=== PATIENT | female | born 1990 | race Caucasian/White ===

== ENCOUNTER 2018-10-31 00:33 | Outpatient (CLI) | payer BC, SELFPAY ==
--- NOTE | 2018-10-31 09:54 | DI.US_ITS ---
SYMPTOMS/DIAGNOSIS: SUPERVISION OF NORMAL , Z34.91 OB ULTRASOUND: There is a single living intrauterine gestation. Estimated sonographic age is 18 weeks 4 days. No abnormality is identified. The fetus is in the cephalic presentation. heart rate is 144 bpm. The placenta is anterior and low lying. The placenta tip is seen at 3-4 mm from the internal os. Amniotic fluid index is within normal limits. IMPRESSION: Single living intrauterine gestation. Estimated sonographic age is 18 weeks 4 days. Low lying placenta. Follow up is recommended. Predicted Gestational Age: Indication/History: 18+2 Wks Range: 17+2 Wks to 19+2 Wks Prior US done on: 08/14/18 [facility] Determined by: First US X LMP History X EDC by prior US: 04/19/19 For multiple gestations: Baby PLACENTA: Grade: I Location: Anterior X Posterior PRESENTATION: RT LT LOW LYING X PREVIA Cephalic X Trans (Head RT LT ) Varied Breech BIOMETRY: Anatomy Identified: BPD: 42 mm 18+5 wks 4 chamber Heart X Heart Rate 144 BPM HC: 155 mm 18+3 wks LVOT X Post Fossa X AC: 128 mm 18+3 wks RVOT X Ventricles X FL: 27 mm 18+3 wks Stomach X Nose X Bladder X Lips X Cisterna Magna: 3.1 mm CI: 83 Kidneys X Palate X Cerebellum: 1.85 mm 3 vessel cord X Spine X EFW: 238 grms 52 % Cord Insertion X (0# 8 oz) NS= not seen Composite Age (US) 18+4 wks Many abnormalities cannot be diagnosed. A normal exam does not exclude congenital abnormality. EDC by US 03/30/19 Amniotic Fluid Index: Normal COMMENTS: RUQ: LUQ: RLQ: LLQ: Total: cm Biophysical Profile: Score 0/2 MO (>2cm) Respirations (>30 sec) Body flexion/extension Extremity flexion/extension TOTAL SCORE
== END 2018-10-31 00:53 ==
PROVIDERS: PCP Registered Nurse; Visit Provider Advanced Practice Midwife
DX: Z34.92 Encounter for supervision of normal pregnancy, unspecified, second trimester (principal); O44.02 Complete placenta previa NOS or without hemorrhage, second trimester
CPT/HCPCS: 76805

== ENCOUNTER 2019-01-07 00:56 | Outpatient (CLI) | payer BC, SELFPAY ==
--- NOTE | 2019-01-07 10:31 | DI.US_ITS ---
SYMPTOM/DIAGNOSIS: LOW LYING PLACENTA O44.42, PLACENTA ONLY LIMITED OB ULTRASOUND: 01/07 Today's ultrasound was performed to evaluate placental location, low lying placenta was noted on examination of 10/31/18. On today's examination the placenta is seen to lie about 5 cm above the internal os of the cervix. No placenta previa seen. Unremarkable appearance of the placenta as visualized. Predicted Gestational Age: Indication/History: f/u placenta 28 Wks Range: to Prior US done on: Determined by: First US LMP History EDC by prior US: 04/01/19 For multiple gestations: Baby PLACENTA: Grade: I Location: Anterior PRESENTATION: RT LT LOW LYING PREVIA Cephalic XX Trans (Head RT LT ) Varied Breech BIOMETRY: Anatomy Identified: BPD: mm wks 4 chamber Heart Heart Rate BPM HC: mm wks LVOT Post Fossa AC: mm wks RVOT Ventricles FL: mm wks Stomach Nose Bladder Lips Cisterna Magna: mm CI: Kidneys Palate Cerebellum: mm 3 vessel cord Spine EFW: grms % Cord Insertion NS= not seen Composite Age (US) wks Many abnormalities cannot be diagnosed. A normal exam does not exclude congenital abnormality. EDC by US Amniotic Fluid Index: Oligo Normal Polyhydramnios COMMENTS: RUQ: LUQ: RLQ: LLQ: Total: cm Biophysical Profile: Score 0/2 MO (>2cm) Respirations (>30 sec) Body flexion/extension Extremity flexion/extension TOTAL SCORE
== END 2019-01-07 01:16 ==
PROVIDERS: PCP Registered Nurse; Visit Provider Advanced Practice Midwife
DX: O44.43 Low lying placenta NOS or without hemorrhage, third trimester (principal)
CPT/HCPCS: 76815

== ENCOUNTER 2023-12-21 13:16 | Outpatient (CLI) | payer SELFPAY ==
[2023-12-25 16:21] LABS: TB Interpretation Negative (Negative); TB1 Ag minus Nil 0.03 IU/ml; TB2 Ag minus Nil 0.03 IU/mL
== END 2023-12-21 13:17 | disposition home or self-care (01) ==
LOC: LBO 13:20
PROVIDERS: PCP Registered Nurse; Visit Provider Nurse Practitioner Family
DX: Z02.1 Encounter for pre-employment examination (principal)
CPT/HCPCS: 36415; 86480